=== PATIENT | male | born 1960 | race Caucasian/White ===

== ENCOUNTER 2017-10-12 14:30 | Inpatient (IN) | payer SELFPAY ==
[~2017-10-12] VITALS: Ht 182.9 cm; Wt 133.2 kg
--- NOTE | ~2017-10-12 | OP ---
PATIENT NAME: NELLY SHARPE MEDICAL RECORD: [id number] :60 LOCATION:[facility] D.2311 ADMISSION DATE:10/12/17 SURGEON: KEV MANLEY MD DATE OF OPERATION: 10/16/2017 SURGEON: Kev Manley MD ANESTHESIA: General, Dr. Kee. OPERATION PERFORMED: Drainage of left subpectoral abscess. PREOPERATIVE DIAGNOSIS: Gas-forming organism, left subpectoral abscess. POSTOPERATIVE DIAGNOSIS: Gas-forming organism, left subpectoral abscess. INDICATION FOR OPERATION: Abscess, left subpectoral area. FINDINGS OF THE OPERATION: Foul-smelling pus in the left subpectoral space. Cultures were taken for aerobe, anaerobe, TB, and fungus. ESTIMATED BLOOD LOSS: Less than 5 cc. DESCRIPTION OF PROCEDURE: After informed consent, adequate preoperative medication evaluation, the patient was brought to the operating room, placed on the table in the supine position. After induction of general endotracheal anesthesia and application of appropriate monitoring devices, a timeout was taken for name, date, etc. The patient was properly identified. A left submammary incision was made and dissection carried down the fascia. Hemostasis maintained with electrocautery. Utilizing rakes, the pectoralis and soft tissues were elevated and the subpectoral space entered. There was foul-smelling pus. This was cultured for aerobe, anaerobe, TB, and fungus. The abscess was then opened further and loculations lysed, the wound was irrigated with copious amounts of antibiotic solution and normal saline. Hemostasis was assured. A 1-inch Chemo drain was placed in the subpectoral space and secured. Sterile dressings were applied. The patient tolerated the procedure well and was transferred back to the ICU. TRANSINT:[id number] Voice Confirmation ID: [id number] DOCUMENT ID: [id number] KEV MANLEY MD at 1401 CC: [id number] DICTATION DATE: 10/16/17 183 COAL HAULER: 10/17/17 0211 DIS IN 10/17/17 [place] [id number] [place] [address]
--- NOTE | ~2017-10-12 | EC ---
PATIENT:NELLY SHARPE DATE OF SERVICE: 10/12/17 SEX: M MEDICAL RECORD: [id number] DATE OF : 60 LOCATION:[facility] AGE OF PATIENT: 57 ADMISSION DATE: 10/12/17 REFERRING PHYSICIAN: INTERPRETING PHYSICIAN: JOSR YE MD ECHOCARDIOGRAM REPORT ECHO CHARGES 4 ECHO COMPLETE CLINICAL DIAGNOSIS: A-FIB ECHOCARDIOGRAPHIC MEASUREMENTS (adult normal given) AC root (d.<3.7cm) 4.1 cm LV Septum d (<1.2 cm> 2.1 cm Valve Excursion 2.5 cm LV Septum (systole) 2.8 cm Left Atria (s.<4.0cm> 4.2 cm LVPW d(<1.2cm) 1.7 cm RV (d.<2.3cm) 3.7 cm LVPW (sytole) 2.7 cm LV diastole(<5.6CM) 4.9 cm MV E-F(>70mm/sec) cm LV systole 2.4 cm LVOT Diameter 2.5 cm MV exc.(>10mm) cm Est.ejection fraction (50-75%) % Pericardial Effusion Y DOPPLER: LVIT cm/sec A cm/sec E 111 cm/sec LA cm/sec RVSP 41.0 mmHg LVOT 81.0 cm/sec AOP1/2T m/s Asc. Ao 121 cm/sec RVOT 51.0 cm/sec RA cm/sec PA 84.0 cm/sec AV Gradient Peak 5.8 mmHg AV Mean 2.9 mmHg AV Area 3.1 cm MV Gradient Peak 5.8 mmHg MV Mean 2.2 mmHg MV Area cm COMMENTS: Gasoline Finisher: Lesia OLSENOE Critical Systems Technician: Alexandro Ye TAPE# PACS DATE OF SERVICE: 10/14/2017 PROCEDURE: Transthoracic echocardiogram. FINDINGS: 1. Left ventricle is not well visualized, but appears to have moderate to severe concentric left ventricular hypertrophy with mildly decreased global hypokinesis, ejection fraction of 40% to 45%. There is mild speckling and in this situation restrictive for possible infiltrative diseases of the heart can be entertained such as amyloidosis. ECHOCARDIOGRAM REPORT [id number] NELLY SHARPE 2. The left atrium is mildly dilated. 3. The aortic valve is normal. 4. The mitral valve is normal structurally with trace mitral regurgitation. 5. Tricuspid valve has mild tricuspid regurgitation. RVSP appears to be normal. 6. Pulmonic valve is grossly normal. 7. The right atrium is severely dilated. 8. The right ventricle is moderately dilated with mild decreased function. CONCLUSIONS: The patient has significant hypertrophy and although there was difficulty visualizing it, there was a mild speckled pattern and there could be the entertainment of amyloidosis or infiltrative diseases of the heart in this situation. TRANSINT:[id number] Voice Confirmation ID: [id number] DOCUMENT ID: [id number] JOSR YE MD at 1020 CC: [id number] DICTATION DATE: 10/14/17 1113 SOCK KNITTER: 10/14/17 1347 [facility] [address] [place] [address]
--- NOTE | ~2017-10-12 | EC ---
PATIENT:NELLY SHARPE DATE OF SERVICE: 10/12/17 SEX: M MEDICAL RECORD: [id number] DATE OF : 60 LOCATION:[facility] AGE OF PATIENT: 57 ADMISSION DATE: 10/12/17 REFERRING PHYSICIAN: INTERPRETING PHYSICIAN: JOSR YE MD ECHOCARDIOGRAM REPORT ECHO CHARGES 7 ECHO w/CONTRAST CLINICAL DIAGNOSIS: CONTRAST ECHO TO ASSESS FOR WALL MOTION ABN. CHF ECHOCARDIOGRAPHIC MEASUREMENTS (adult normal given) AC root (d.<3.7cm) 4.1 cm LV Septum d (<1.2 cm> 2.1 cm Valve Excursion 2.5 cm LV Septum (systole) 2.8 cm Left Atria (s.<4.0cm> 4.2 cm LVPW d(<1.2cm) 1.7 cm RV (d.<2.3cm) 3.7 cm LVPW (sytole) 2.7 cm LV diastole(<5.6CM) 4.9 cm MV E-F(>70mm/sec) cm LV systole 2.4 cm LVOT Diameter 2.5 cm MV exc.(>10mm) cm Est.ejection fraction (50-75%) % Pericardial Effusion N DOPPLER: LVIT cm/sec A cm/sec E 111 cm/sec LA cm/sec RVSP 41.0 mmHg LVOT 81.0 cm/sec AOP1/2T m/s Asc. Ao 121 cm/sec RVOT 51.0 cm/sec RA cm/sec PA 84.0 cm/sec AV Gradient Peak 5.8 mmHg AV Mean 2.9 mmHg AV Area 3.1 cm MV Gradient Peak 5.8 mmHg MV Mean 2.2 mmHg MV Area cm COMMENTS: COMPLETE ECHO DONE 10-13-17 Rugby Union Footballer: El JOLLEY Glaucoma Specialist: Alexandro Ye TAPE# PACS DATE OF SERVICE: 10/15/2017 PROCEDURE: Transthoracic echocardiogram with contrast enhancement. FINDINGS: There is global hypokinesis in the left ventricle as well as global hypokinesis in the right ventricle. There is evidence of significant reduction in LV function with an ejection fraction of 25%. There is also reduction in the ejection fraction of the right ventricle. There are no obvious regional wall motion abnormalities demonstrated. ECHOCARDIOGRAM REPORT [id number] NELLY SHARPE TRANSINT:[id number] Voice Confirmation ID: [id number] DOCUMENT ID: [id number] 10/17/2017 Edited to correct date of service, dmm. JOSR YE MD CC: [id number] DICTATION DATE: 10/16/17919 ORNAMENTAL METALWORK DESIGNER: 10/16/17 1228 ADM IN [place] [id number] [place] [id number]
--- NOTE | ~2017-10-12 | HP ---
PATIENT: NELLY SHARPE MEDICAL RECORD: [id number] ACCOUNT: [id number] LOCATION:[facility] D.2311 : 60 ADMISSION DATE: 10/12/17 HISTORY AND PHYSICAL EXAMINATION HISTORY: A 57-year-old male presented to the Emergency Room with a complaint of feet swelling for reportedly 3 days and shortness of breath, concerned also about possible diabetes, rare to seek medical care. His PCP is in [place]. He does not have a physician here. He is not on any current medication. Admits 100 plus pound weight loss over the past year and a half. This was intentional. He was morbidly obese, is still obese but significantly improved per the patient. He has had problems with lower extremity edema off and on for an extended period of time. PAST MEDICAL HISTORY: Listed as kidney stone in the s. ALLERGIES: No known drug allergies. MEDICATIONS: No current medications. REVIEW OF SYSTEMS: GENERAL: Weight loss, intentional, as noted above. HEENT: No cephalgia, visual changes, tinnitus, epistaxis, or dysphagia. CARDIOVASCULAR: Admits rapid heart rate. He has left musculoskeletal chest wall pain from a pectoralis muscle tear. Denies substernal chest tightness, pressure. Denies diaphoresis. PULMONARY: Denies hemoptysis. Denies night sweats. GI: Denies hematemesis, hematochezia, or melena. : Denies dysuria. MUSCULOSKELETAL: Ulcerative lesions on his feet, extensive swelling and edema, has appearance of chronic venous stasis and [id number] cellulitis of lower extremities bilaterally. PHYSICAL EXAMINATION: VITAL SIGNS: Temp 97.8, blood pressure of 100/73, heart rate 86, respirations 20, O2 sat is 99%. GENERAL: Alert, oriented, in moderate distress. Appears very poorly cared for. HEENT: Normocephalic, atraumatic. Eyes; pupils are equally round and reactive to light and accommodation. Extraocular muscles intact. Conjunctivae are not injected. Ears; canals patent. TMs are intact. Nose; nares patent without drainage. Throat; no erythema, no exudates. NECK: Supple. No lymphadenopathy. No JVD. HEART: Irregularly irregular. LUNGS: Clear to auscultation bilaterally. Breathing is nonlabored. ABDOMEN: Soft, nontender. Bowel sounds in all 4 quadrants. EXTREMITIES: Present times 4. Ulcerative lesions on toes of both feet with discharge. Extensive edema in lower extremities bilaterally. IMAGING: Chest x-ray with no acute abnormalities. D-dimer elevated. V/Q scan; low probability for pulmonary emboli. EKG; atrial fibrillation with rate of 96. Multiple EKGs obtained. One showed AFib with rate of 113. On initial one, vent rate of 151. X-ray of the feet; edematous changes. No osseous abnormalities. Wound cultures, blood cultures pending. ProBNP 7490. Troponin 0.437. CK 76, HISTORY AND PHYSICAL [id number] NELLY SHARPE CK-MB 2.3. Initial glucose 742, calcium is 8.7. T-bili is 1.03, AST 20, ALT 33, alk phos 186. BUN 52, creatinine 1.9, sodium is 117, potassium 5.5, chloride is 82, bicarb is 25.7. Urinalysis; urine glucose 1000, otherwise essentially normal UA. ASSESSMENT AND PLAN: 1. Uncontrolled diabetes, reportedly new onset. The patient is admitted, placed on insulin drip. Serial electrolytes. 2. Cellulitis, lower extremities, with leukocytosis. White count 33,500. Blood cultures, wound cultures obtained. IV clindamycin 300 mg IV q.i.d. Electrolyte protocol. 3. Likely acute renal failure with osmotic diuresis from his diabetes. IV fluids. Monitor. 4. Elevated cardiac enzymes, likely secondary to comorbidities including his AFib. Cardiology consulted. He has had good rate control with Cardizem drip. Lovenox started. Monitor. TRANSINT:[id number] Voice Confirmation ID: [id number] DOCUMENT ID: [id number] SHANI LINTON DO at 1514 CC: [id number] DICTATION DATE: 10/13/17 1224 REPACKER: 10/13/17 1347 ADM IN [place] [id number] [place] [address]
[2017-10-12 17:04] LABS: HEMATOCRIT 45.9 % (42.0-54.0); HEMOGLOBIN 15.2 g/dL (13.5-17.5); MCH 28.1 pg (26.0-34.0); MCHC 33.1 g/dL (31.0-37.0); MEAN PLATELET VOLUME 13.1 fL (7.4-10.4); PLATELET COUNT 318 10x3/uL (130-400); RDW 14.9 % (11.5-14.5); WBC 31.7 10x3/uL (4.8-10.8)
[2017-10-12 17:10] LABS: APTT 28.1 SECONDS (22.8-39.4); INR 1.24 (0.85-1.17); PROTIME 15.2 SECONDS (11.6-15.0)
[2017-10-12 17:34] LABS: ALBUMIN 2.1 g/dL (3.4-5.0); ALKALINE PHOSPHATASE 186 U/L (46-116); ALT (SGPT) 33 U/L (10-68); BILIRUBIN - TOTAL 1.03 mg/dL (0.2-1.3); CALCIUM 8.7 mg/dL (8.5-10.1); CARBON DIOXIDE 25.7 mmol/L (21.0-32.0); CKMB 2.3 U/L (0.0-3.6); CREATINE KINASE 76 UL (21-232); CREATININE - SERUM 1.9 mg/dL (0.6-1.3); LYMPHOCYTES 5 % (15-50); MONOCYTES 2 % (2-11); NEUTROPHILS 92 % (40-80); POTASSIUM - SERUM 5.5 mmol/L (3.5-5.1); PRO BNP 7490 pg/mL (0-125); PROTEIN - SERUM 6.6 g/dL (6.4-8.2); UREA NITROGEN 52 mg/dL (7-18); eGFR NON AFRICAN AMERICAN 39 mL/min (90-120)
[2017-10-12 17:35] LABS: PLATELET ESTIMATE INCREASED
[2017-10-12 17:55] LABS: CALC OSMOLALITY 286 mosm/kg (275-300); GLUCOSE 742 mg/dL (74-106); SODIUM 117 mmol/L (136-145)
[2017-10-12 17:56] LABS: CHLORIDE - SERUM 82 mmol/L (98-107); TROPONIN-I 0.437 ng/mL (0.000-0.060)
[2017-10-12 21:15] LABS: APPEARANCE CLEAR (CLEAR); BILIRUBIN NEGATIVE (NEGATIVE); COLOR YELLOW (YELLOW); GLUCOSE 1000 mg/dL (NEGATIVE); KETONE NEGATIVE (NEGATIVE); NITRITE NEGATIVE (NEGATIVE); PROTEIN NEGATIVE (NEGATIVE); UROBILINOGEN NORMAL (NORMAL)
[2017-10-12 22:41] LABS: CALCIUM 8.7 mg/dL (8.5-10.1); CARBON DIOXIDE 22.9 mmol/L (21.0-32.0); CKMB 1.9 U/L (0.0-3.6); CREATINE KINASE 87 UL (21-232); CREATININE - SERUM 1.8 mg/dL (0.6-1.3); POTASSIUM - SERUM 4.7 mmol/L (3.5-5.1); UREA NITROGEN 53 mg/dL (7-18); eGFR NON AFRICAN AMERICAN 41 mL/min (90-120)
[2017-10-12 22:45] LABS: CALC OSMOLALITY 279 mosm/kg (275-300); CHLORIDE - SERUM 85 mmol/L (98-107); GLUCOSE 569 mg/dL (74-106); SODIUM 119 mmol/L (136-145); TROPONIN-I 0.432 ng/mL (0.000-0.060)
[2017-10-12 23:00] VITALS: BP 135/83
[2017-10-12 23:15] VITALS: BP 131/86
[2017-10-12 23:30] VITALS: BP 124/93
[2017-10-12 23:44] VITALS: BP 145/107
[2017-10-12 23:45] VITALS: BP 129/94
[2017-10-13] VITALS (50 sets, daily range): BP systolic 93–146; BP diastolic 63–113
[2017-10-13 01:27] LABS: CALC OSMOLALITY 274 mosm/kg (275-300); CALCIUM 8.4 mg/dL (8.5-10.1); CARBON DIOXIDE 20.9 mmol/L (21.0-32.0); CHLORIDE - SERUM 89 mmol/L (98-107); CKMB 1.7 U/L (0.0-3.6); CREATINE KINASE 72 UL (21-232); CREATININE - SERUM 1.8 mg/dL (0.6-1.3); GLUCOSE 360 mg/dL (74-106); SODIUM 122 mmol/L (136-145); TROPONIN-I 0.535 ng/mL (0.000-0.060); UREA NITROGEN 51 mg/dL (7-18); eGFR NON AFRICAN AMERICAN 41 mL/min (90-120)
[2017-10-13 07:07] LABS: HEMATOCRIT 42.9 % (42.0-54.0); HEMOGLOBIN 14.8 g/dL (13.5-17.5); MCH 28.6 pg (26.0-34.0); MCHC 34.5 g/dL (31.0-37.0); MCV 82.8 fL (80.0-100.0); MEAN PLATELET VOLUME 12.1 fL (7.4-10.4); PLATELET COUNT 278 10x3/uL (130-400); RBC 5.18 10x6/uL (4.20-6.10); RDW 14.6 % (11.5-14.5); WBC 33.5 10x3/uL (4.8-10.8)
[2017-10-13 07:34] LABS: CKMB 1.1 U/L (0.0-3.6); CREATINE KINASE 59 UL (21-232); TROPONIN-I 0.863 ng/mL (0.000-0.060)
[2017-10-13 07:41] LABS: LYMPHOCYTES 10 % (15-50); MONOCYTES 2 % (2-11); NEUTROPHILS 73 % (40-80); PLATELET ESTIMATE NORMAL
[2017-10-13 12:58] LABS: HEMOGLOBIN A1C 12.5 % (4.8-6.0)
[2017-10-14] VITALS (24 sets, daily range): BP systolic 111–152; BP diastolic 65–107; BMI 37.9
[2017-10-14 04:27] LABS: BASOPHILS 0 % (0-2); EOSINOPHILS 0.1 % (0-7); HEMOGLOBIN 13.5 g/dL (13.5-17.5); IMMATURE GRANULOCYTES 0.5 % (0-5); LYMPHOCYTES 3.5 % (15-50); MCH 28.3 pg (26.0-34.0); MCHC 33.8 g/dL (31.0-37.0); MCV 83.9 fL (80.0-100.0); MEAN PLATELET VOLUME 12.8 fL (7.4-10.4); MONOCYTES 2.3 % (2-11); NEUTROPHILS 93.6 % (40-80); PLATELET COUNT 270 10x3/uL (130-400); RBC 4.77 10x6/uL (4.20-6.10); RDW 14.8 % (11.5-14.5); WBC 30.4 10x3/uL (4.8-10.8)
[2017-10-14 04:38] LABS: INR 1.32 (0.85-1.17); PROTIME 15.9 SECONDS (11.6-15.0)
[2017-10-14 04:41] LABS: APTT 35.5 SECONDS (22.8-39.4)
[2017-10-14 05:05] LABS: ALBUMIN 1.6 g/dL (3.4-5.0); BILIRUBIN - TOTAL 0.78 mg/dL (0.2-1.3); CARBON DIOXIDE 22.4 mmol/L (21.0-32.0); CREATININE - SERUM 1.8 mg/dL (0.6-1.3); MAGNESIUM - SERUM 2.4 mg/dL (1.8-2.4); PHOSPHOROUS 4.6 mg/dL (2.5-4.9); PROTEIN - SERUM 5.7 g/dL (6.4-8.2)
[2017-10-14 05:18] LABS: C-REACTIVE PROTEIN 30.2 mg/dL (0.0-0.9)
[2017-10-14 05:40] LABS: ANION GAP 15.5 mmol/L (8-16); POTASSIUM - SERUM 3.9 mmol/L (3.5-5.1)
[2017-10-15] VITALS (22 sets, daily range): BP systolic 113–168; BP diastolic 77–113
[2017-10-15 04:36] LABS: INR 1.28 (0.85-1.17); PROTIME 15.5 SECONDS (11.6-15.0)
[2017-10-15 04:39] LABS: ANION GAP 10.7 mmol/L (8-16); C-REACTIVE PROTEIN 16.6 mg/dL (0.0-0.9); CALCIUM 7.8 mg/dL (8.5-10.1); CREATININE - SERUM 1.6 mg/dL (0.6-1.3); MAGNESIUM - SERUM 2.2 mg/dL (1.8-2.4); PHOSPHOROUS 3.7 mg/dL (2.5-4.9); POTASSIUM - SERUM 3.4 mmol/L (3.5-5.1)
[2017-10-15 04:47] LABS: BASOPHILS 0 % (0-2); EOSINOPHILS 0.3 % (0-7); HEMATOCRIT 39.7 % (42.0-54.0); IMMATURE GRANULOCYTES 0.5 % (0-5); LYMPHOCYTES 4.1 % (15-50); MCHC 32.7 g/dL (31.0-37.0); MCV 85.6 fL (80.0-100.0); MEAN PLATELET VOLUME 12.7 fL (7.4-10.4); MONOCYTES 4.6 % (2-11); NEUTROPHILS 90.5 % (40-80); PLATELET COUNT 233 10x3/uL (130-400); RBC 4.64 10x6/uL (4.20-6.10); WBC 22.3 10x3/uL (4.8-10.8)
[2017-10-15 04:51] LABS: CARBON DIOXIDE 28.7 mmol/L (21.0-32.0)
[2017-10-16] VITALS (33 sets, daily range): BP systolic 109–161; BP diastolic 64–96; Ht 182.9 cm; Wt 133.2 kg
[2017-10-16 03:58] LABS: BASOPHILS 0.1 % (0-2); EOSINOPHILS 0.2 % (0-7); HEMATOCRIT 37.8 % (42.0-54.0); HEMOGLOBIN 12.3 g/dL (13.5-17.5); IMMATURE GRANULOCYTES 0.6 % (0-5); LYMPHOCYTES 4.8 % (15-50); MCH 27.6 pg (26.0-34.0); MCHC 32.5 g/dL (31.0-37.0); MCV 84.8 fL (80.0-100.0); MEAN PLATELET VOLUME 12.7 fL (7.4-10.4); MONOCYTES 6.1 % (2-11); NEUTROPHILS 88.2 % (40-80); PLATELET COUNT 197 10x3/uL (130-400); RBC 4.46 10x6/uL (4.20-6.10); WBC 18.7 10x3/uL (4.8-10.8)
[2017-10-16 04:09] LABS: INR 1.25 (0.85-1.17); PROTIME 15.3 SECONDS (11.6-15.0)
[2017-10-16 04:26] LABS: ALBUMIN 1.5 g/dL (3.4-5.0); ANION GAP 7.6 mmol/L (8-16); BILIRUBIN - TOTAL 0.9 mg/dL (0.2-1.3); C-REACTIVE PROTEIN 12.1 mg/dL (0.0-0.9); CALCIUM 7.7 mg/dL (8.5-10.1); CARBON DIOXIDE 29.3 mmol/L (21.0-32.0); CREATININE - SERUM 1.2 mg/dL (0.6-1.3); MAGNESIUM - SERUM 2.2 mg/dL (1.8-2.4); PHOSPHOROUS 3.2 mg/dL (2.5-4.9); POTASSIUM - SERUM 3.9 mmol/L (3.5-5.1); PROTEIN - SERUM 5.4 g/dL (6.4-8.2); THYROID STIMULATING HORMONE 0.86 uIU/mL (0.36-3.74)
[2017-10-17] VITALS (30 sets, daily range): BP systolic 75–148; BP diastolic 44–620
[2017-10-17 04:03] LABS: INR 1.44 (0.85-1.17)
[2017-10-17 04:10] LABS: BASOPHILS 0 % (0-2); EOSINOPHILS 0.1 % (0-7); HEMATOCRIT 26.7 % (42.0-54.0); HEMOGLOBIN 8.6 g/dL (13.5-17.5); IMMATURE GRANULOCYTES 0.6 % (0-5); LYMPHOCYTES 7.5 % (15-50); MCH 27.9 pg (26.0-34.0); MCHC 32.2 g/dL (31.0-37.0); MCV 86.7 fL (80.0-100.0); MEAN PLATELET VOLUME 12.1 fL (7.4-10.4); MONOCYTES 7.3 % (2-11); NEUTROPHILS 84.5 % (40-80); PLATELET COUNT 184 10x3/uL (130-400); RBC 3.08 10x6/uL (4.20-6.10); RDW 15.2 % (11.5-14.5); WBC 20.8 10x3/uL (4.8-10.8)
[2017-10-17 04:13] LABS: ALBUMIN 1.2 g/dL (3.4-5.0); BILIRUBIN - TOTAL 0.57 mg/dL (0.2-1.3); C-REACTIVE PROTEIN 10.9 mg/dL (0.0-0.9); CALCIUM 7.3 mg/dL (8.5-10.1); CARBON DIOXIDE 26.1 mmol/L (21.0-32.0); CREATININE - SERUM 1.1 mg/dL (0.6-1.3); PROTEIN - SERUM 4.6 g/dL (6.4-8.2)
[2017-10-17 04:17] LABS: ANION GAP 9.5 mmol/L (8-16); POTASSIUM - SERUM 4.6 mmol/L (3.5-5.1)
[2017-10-17 07:25] LABS: SPE - A/G RATIO 0.6 (0.7-1.7); SPE - ALBUMIN 1.9 g/dL (2.9-4.4); SPE - ALPHA-1 GLOBULIN 0.4 g/dL (0.0-0.4); SPE - ALPHA-2 GLOBULIN 0.9 g/dL (0.4-1.0); SPE - BETA GLOBULIN 0.8 g/dL (0.7-1.3); SPE - GAMMA GLOBULIN 1.2 g/dL (0.4-1.8); SPE - M-SPIKE Not Observed g/dL (Not Observed); SPE - TOTAL PROTEIN 5.1 g/dL (6.0-8.5)
[2017-10-17 13:59] LABS: HEMOGLOBIN 5.4 g/dL (13.5-17.5)
[2017-10-17 14:00] LABS: HEMATOCRIT 17.2 % (42.0-54.0)
[2017-10-17 16:15] LABS: AEROBE ID Final report (())
[2017-10-21 17:11] LABS: AEROBE ID Final report (())
== END 2017-10-17 19:13 | DRG 872 ==
LOC: D.ER 14:30 → D.ICU 20:24
PROVIDERS: Family Medicine; Internal Medicine Cardiovascular Disease
PROC: 0W980ZZ Drainage of Chest Wall, Open Approach (ICD-10-PCS; principal; 2017-10-16 16:15)
DX: R78.81 Bacteremia (principal); I50.40 Unspecified combined systolic (congestive) and diastolic (congestive) heart failure; L03.116 Cellulitis of left lower limb; N17.9 Acute kidney failure, unspecified; L03.115 Cellulitis of right lower limb; N39.0 Urinary tract infection, site not specified; L02.213 Cutaneous abscess of chest wall; S22.32XA Fracture of one rib, left side, initial encounter for closed fracture; J90 Pleural effusion, not elsewhere classified; M1A.9XX1 Chronic gout, unspecified, with tophus (tophi); E11.621 Type 2 diabetes mellitus with foot ulcer; E66.9 Obesity, unspecified; Z68.37 Body mass index [BMI] 37.0-37.9, adult; I48.91 Unspecified atrial fibrillation; X58.XXXA Exposure to other specified factors, initial encounter; D64.9 Anemia, unspecified